=== PATIENT | female | born 1935 | race Caucasian/White ===

== ENCOUNTER → 2017-04-21 | Outpatient (CLI) | payer BC ==
[~2017-04-21] MED LIST: FSMUNK; PRLSRUNK; ZCRUNK PO
[2017-04-21 10:15] LABS: ALT/SGPT 19 U/L (12-78); AST/SGOT 19 U/L (15-37); BLOOD UREA NITROGEN 18 mg/dl (7-18); BUN/CREATININE RATIO 20.2 (10-20); CALCIUM 8.8 mg/dl (8.5-10.1); CARBON DIOXIDE 30 mmol/L (21-32); CHLORIDE 108 mmol/L (98-107); CREATININE 0.88 mg/dl (0.60-1.20); GLUCOSE 86 mg/dl (70-99); POTASSIUM 4.1 mmol/L (3.5-5.1); SODIUM 142 mmol/L (136-145)
[2017-04-21 10:18] LABS: ALB/GLOB RATIO 1.1 (0.9-2); ALKALINE PHOSPHATASE 68 U/L (45-117); CHOLESTEROL 181 mg/dl (0-200); CHOLESTEROL/HDL RATIO 2.5; HDL CHOLESTEROL 73 mg/dl; LDL CHOLESTEROL CALCULATED 80 mg/dl; TRIGLYCERIDES 139 mg/dl (0-150); VERY LOW DENSITY LIPOPROT CALC 28 mg/dl
== END | disposition home or self-care (01) ==
LOC: C.LAB1850 08:58
PROVIDERS: ATTEND Internal Medicine Pulmonary Disease
DX: D86.9 Sarcoidosis, unspecified (principal); E78.5 Hyperlipidemia, unspecified; K21.9 Gastro-esophageal reflux disease without esophagitis

== ENCOUNTER → 2017-08-26 | Outpatient (CLI) | payer BC ==
--- NOTE | 2017-08-26 14:55 | MAMMOGRAPHY REPORT ---
BILATERAL DIGITAL SCREENING MAMMOGRAM WITH CAD: 08/26/2017 CLINICAL HISTORY: Routine screening. Patient has no complaints. TECHNIQUE: Current study was also evaluated with a Computer Aided Detection (CAD) system. Bilateral CC and MLO views were obtained. COMPARISON: Comparison is made to exams dated: 08/25/2016 mammogram, 08/22/2015 mammogram, 07/11/2014 m ammogram, 07/06/2013 mammogram, 07/07/2012 mammogram, and 07/04/2012 mammogram - [facility] ter. BREAST COMPOSITION: The tissue of both breasts is heterogeneously dense, which may obscure small mas ses. FINDINGS: No suspicious masses, calcifications, or areas of architectural distortion are noted in ei ther breast. There has been no significant interval change compared to prior exams. Scattered bilater al benign-appearing calcifications are not significantly changed. Bilateral asymmetries are stable. IMPRESSION: ACR BI-RADS CATEGORY 2: BENIGN There is no mammographic evidence of malignancy. A 1 year screening mammogram is recommended. The pa tient will receive written notification of the results. Approximately 10% of breast cancers are not detected with mammography. A negative mammographic report should not delay biopsy if a clinically suggestive mass is present. Tameka Josue M.D. /:08/26/2017 12:56:19 [place] Tender: Jeniffer MACIAS)([place])([place]), [facility] letter sent: Normal 1/2 BI-RADS Code: ACR BI-RADS Category 2: Benign
== END | disposition home or self-care (01) ==
LOC: C.MAMM 10:02
PROVIDERS: ATTEND Internal Medicine Pulmonary Disease
DX: Z12.31 Encounter for screening mammogram for malignant neoplasm of breast (principal)

== ENCOUNTER → 2017-10-17 | Outpatient (CLI) | payer BC ==
[2017-10-17 10:38] LABS: BASO % 1.1 %; BASO ABS # 0.06 K/uL (0-0.2); COMPLETE YES; EOS % 3.3 %; HEMATOCRIT 41.7 % (37-47); LYMPH % 32.4 %; LYMPH ABS # 1.75 K/uL (1.2-3.4); MEAN CELL VOLUME 87.2 fL (80-100); MEAN CORPUSCULAR HEMOGLOBIN 28.5 pg (25-34); MEAN CORPUSCULAR HGB CONC 32.6 g/dl (32-36); MEAN PLATELET VOLUME 10.8 fL (7.4-10.4); NEUT % 53.2 %; PLATELET COUNT 256 K/uL (130-400); RED BLOOD COUNT 4.78 M/uL (4.2-5.4)
[2017-10-17 12:47] LABS: ALT/SGPT 19 U/L (12-78); AST/SGOT 16 U/L (15-37); BLOOD UREA NITROGEN 18 mg/dl (7-18); BUN/CREATININE RATIO 18.6 (10-20); CARBON DIOXIDE 28 mmol/L (21-32); CHLORIDE 101 mmol/L (98-107); CHOLESTEROL 218 mg/dl (0-200); CHOLESTEROL/HDL RATIO 2.6; CREATININE 0.94 mg/dl (0.60-1.20); GLUCOSE 91 mg/dl (70-99); HDL CHOLESTEROL 84 mg/dl; LDL CHOLESTEROL CALCULATED 107 mg/dl; POTASSIUM 4.2 mmol/L (3.5-5.1); SODIUM 138 mmol/L (136-145); TRIGLYCERIDES 134 mg/dl (0-150); VERY LOW DENSITY LIPOPROT CALC 27 mg/dl
[2017-10-17 12:57] LABS: ALKALINE PHOSPHATASE 70 U/L (45-117); THYROID STIMULATING HORMONE 0.876 uIu/ml (0.300-4.500)
== END | disposition home or self-care (01) ==
LOC: C.LAB1850 09:31
PROVIDERS: ATTEND Internal Medicine Pulmonary Disease
DX: D86.9 Sarcoidosis, unspecified (principal); E78.5 Hyperlipidemia, unspecified; K21.9 Gastro-esophageal reflux disease without esophagitis

== ENCOUNTER → 2017-11-10 | Outpatient (CLI) | payer BC ==
--- NOTE | 2017-11-10 11:43 | DIAGNOSTIC IMAGING REPORT ---
C-SPINE ROUTINE 4 OR 5 VIEWS HISTORY: Pain. Neuropathy. M25.50 [id number] COMPARISON: None. FINDINGS: The cervical spine is visualized from C1 through the superior endplate of T1. There is no fracture. No subluxation. Moderate degenerative disc change primarily from C3 through C6. Prevertebral soft tissues and the atlantodens interval are intact. IMPRESSION: Moderate degenerative disc change from C3 through C6. No acute process. The above report was generated using voice recognition software. It may contain grammatical, syntax or spelling errors. Electronically signed by: Aramis Ham M.D. 11/10/2017 11:41 AM Dictated Date/Time: 11/10/2017 11:40 AM
== END | disposition home or self-care (01) ==
LOC: C.RAD1850 11:26
PROVIDERS: ATTEND Internal Medicine Pulmonary Disease
DX: M25.50 Pain in unspecified joint (principal); M50.90 Cervical disc disorder, unspecified, unspecified cervical region

== ENCOUNTER 2025-06-14 12:00 | Observation (INO) ==
--- NOTE | 2025-06-14 12:37 | Emergency Department Note ---
Impression & Plan Nausea ED Provider Note Provider: Ta Wei MD CHIEF COMPLAINT: Weakness, poor intake, nausea HISTORY OF PRESENT ILLNESS: Patient is a 89-year-old female history of H. pylori gastritis, chronic ongoing nausea and weight loss presenting here today with son. Has been dealing with over a year of ongoing nausea issues since a fall. Has seen GI and has EGDs in the past and recently yesterday restarted treatment for H. pylori. Was seen in the ER several weeks ago for similar complaints as today as well as in the primary care office on the . Son reports he thinks some comfort of this might be stress and anxiety and they have a psychiatry appointment coming up in 8 days. Patient lives by herself. Hardly eating any food at all and limited water intake. Son is concerned about her weight loss and ongoing nausea issues. She not functioning well at home and is generally weak. No significant abdominal pain however. No falls. Does feel somewhat unsteady with walking however. PAST MEDICAL HISTORY: As noted above MEDICATIONS: Reviewed home medications. Started antibiotics yesterday SOCIAL HISTORY: Lives at home by herself, PHYSICAL EXAM: GENERAL: alert and oriented in no acute distress on stretcher Head: normocephalic and atraumatic EYES: No injection, discharge or icterus. NECK: Trachea midline. ENT: Mucous membranes pink and moist. LUNGS: Airway patent. No retractions. Breath sounds clear HEART: Regular rate and rhythm. No chest wall tenderness ABDOMEN: Soft and non-tender, without guarding or rebound. No masses SKIN: Acyanotic, warm, dry, without rashes EXTREMITIES: Without swelling, tenderness or deformity NEUROLOGICAL: No focal deficits. No aphasia. No facial droop or slurred speech.Ambulatory. EK bpm normal sinus rhythm with sinus arrhythmia. No acute ST segment elevation or depression with a QTc of 440. CONTINUOUS CARDIAC MONITORING: was ordered and showed a heart rate of 80s-100s bpm in normal sinus rhythm sinus tachycardia Patient's laboratory studies and imaging reviewed. Differential includes Gastroenteritis, food borne illness, infections, appendicitis, diverticulitis, inflammatory bowel disease, obstruction, GI bleed, biliary pathology, volvulus, as well as other pathologies. IMPRESSION/MEDICAL DECISION MAKING: Patient well-appearing in no distress. Evidently ongoing issues with nausea. Has extensive GI workup. Just restarted on H. pylori medication yesterday. Send given Imodium and no further diarrhea since yesterday. No reported symptoms of GI bleeding. No significant recent travel reported. No abdominal pain. Blood work obtained here without significant anemia, leukocytosis/evidence of sepsis, electrolyte abnormality, renal dysfunction, or evidence of hepatitis or pancreatitis. Son thinks it may be some component of anxiety causing some of her nausea symptoms as well. Patient does live by herself and is been weak and having some increased difficulty ambulating. No falls reported or syncope. Son reports that they are strongly considering having the patient move in with family and are working to get in with outpatient telepsychiatry this coming week. Benign abdomen and doubt acute intra-abdominal pathology, obstruction, perforation, or mass. Did review prior notes including GI scope from January of this year. Given some Haldol's as been effective in the past to help with the nausea with some improvement. Given a small gentle IV fluid bolus. Does not appear an extremis. Discussed with patient and son at bedside. They wish to have the patient stay least overnight and possibly with psychiatry consultation and ensure that her nausea is continued to have improvement and work to establish better outpatient living arrangement for the patient. As such reach out to the hospitalist team for further observation. DIAGNOSIS: Intractable nausea DISPOSITION: Hospitalist will evaluate Patient was agreeable with this plan. Past Med/Surg History Problem List (Updated 06/14/25 @ 16:15 by Ta Wei M.D.) Nausea (Acute) Chronic Helicobacter pylori gastritis Anxiety (Acute) Abdominal pain (Acute) Nausea (Acute) Elevated CEA H. pylori infection Nausea Unintentional weight loss Insomnia Fracture of thumb Current use of proton pump inhibitor Tendinitis of right rotator cuff Impacted cerumen, right ear Memory loss Impacted cerumen, left ear Sensorineural hearing loss (SNHL) of right ear with restricted hearing of left ear Hearing loss Right knee pain Lumbar radiculopathy Lumbar spondylosis Dyslipidemia (Chronic) GERD without esophagitis (Chronic) Sarcoidosis (Chronic) Medical History History of COVID-19 Memory problem History of fall (02/2024) Gastrointestinal complaints GERD (gastroesophageal reflux disease) Abnormal blood cell count Hyperlipidemia History of diverticulosis Sarcoidosis Surgical History History of bronchoscopy History of colonoscopy (~2008) History of tubal ligation Family History Unknown ASCVD (arteriosclerotic cardiovascular disease) Denies family history of Ovarian cancer Prostate cancer Clotting disorder Myocardial infarction Breast cancer Colorectal cancer Social History Smoking Status: Never smoker Tobacco Type: Cigarettes Age Started Using Tobacco: 24; Age Quit Using Tobacco: 62; packs per day: 0.1; Second Hand Exposure: No; Do You Dip or Chew Tobacco: No; Hx Alcohol Use: Yes Alcohol type: wine Alcohol Intake Frequency: 2-4 x/Month Hx Substance Use: No Preferred Language: Chinese Communication Ability: Effective Visual Impairment: No Limitations Hearing Ability: Use of Hearing Aid Varying Exceptionalities Teacher Required: No Beliefs That Will Affect Care: None marital status: / Current Living Situation: Alone current occupational status: retired Feels Safe at Home: Yes Childhood Exposure to Second-Hand Smoke: No Diet: regular caffeine: Yes Dental Care, Regularly: No Physical Activity Frequency: 3-4 Times per Week Physical Activity Frequency Comment: timmy and swimming at [employer] Seatbelt Use: always Assistive Devices: Glasses and Hearing Aid - Bilateral Allergies Allergies Allergy/AdvReac Type Severity Reaction Status Date / Time levofloxacin [From Levaquin] Allergy Unknown pt can't Verified 06/07/25 11:34 remember reaction Home Meds Home Medications Medication Instructions Recorded Confirmed aspirin 81 mg tablet,delayed 81 mg PO DAILY 01/22/25 06/14/25 release (Adult Low Dose Aspirin) Previous Rx's Medication Instructions Recorded escitalopram oxalate 5 mg tablet 5 mg PO DAILY #30 tabs 05/28/25 (Lexapro) lorazepam 0.5 mg tablet 0.25 mg (1/2 x 0.5 mg) PO DAILY 05/28/25 PRN anxiety #14 tabs bismuth subsalicylate 525 mg/15 mL 525 mg (15 mL) PO QID 14 days #840 06/07/25 oral suspension mL metronidazole 500 mg tablet 500 mg PO TID #42 tabs 06/07/25 pantoprazole 40 mg tablet,delayed 40 mg PO BID #60 tabs 06/07/25 release tetracycline 500 mg tablet 500 mg PO Q6H #56 tabs 06/07/25 Results & Data (ED) Vital Signs Vital Signs - 24 hr 06/14/25 12:08 06/14/25 13:07 06/14/25 14:26 Temperature 36.6 C Temperature Source Temporal Artery Scan Pulse Rate 87 90 Pulse Rate [Apical] 92 H Respiratory Rate 18 16 Respiratory Effort / Characteristics Non-Labored Spontaneous Non-Labored Spontaneous Respiratory Depth Normal Respiratory Pattern Regular Blood Pressure 150/82 H Blood Pressure [Right Arm] 174/93 H Blood Pressure Mean 104 Blood Pressure Mean [Right Arm] 120 Blood Pressure Position Sitting Blood Pressure Position [Right Arm] Lying Pulse Oximetry 97 98 Oxygen Delivery Method Room Air Room Air Sepsis Recent Fever Within 48 Hours No Sepsis New/Unexplained Change in Mental Status N/A Sepsis Action Taken by Nursing No Action Required 06/14/25 14:54 06/14/25 14:54 06/14/25 14:54 Temperature Temperature Source Pulse Rate 87 Pulse Rate [Apical] 89 Respiratory Rate 16 16 Respiratory Effort / Characteristics Non-Labored Spontaneous Respiratory Depth Respiratory Pattern Blood Pressure Blood Pressure [Right Arm] 174/93 H Blood Pressure Mean Blood Pressure Mean [Right Arm] 120 Blood Pressure Position Blood Pressure Position [Right Arm] Pulse Oximetry 98 98 98 Oxygen Delivery Method Room Air Room Air Room Air Sepsis Recent Fever Within 48 Hours Sepsis New/Unexplained Change in Mental Status Sepsis Action Taken by Nursing 06/14/25 16:00 Temperature Temperature Source Pulse Rate Pulse Rate [Apical] 86 Respiratory Rate 16 Respiratory Effort / Characteristics Non-Labored Spontaneous Respiratory Depth Respiratory Pattern Blood Pressure Blood Pressure [Right Arm] 183/89 H Blood Pressure Mean Blood Pressure Mean [Right Arm] 120 Blood Pressure Position Blood Pressure Position [Right Arm] Pulse Oximetry 98 Oxygen Delivery Method Room Air Sepsis Recent Fever Within 48 Hours Sepsis New/Unexplained Change in Mental Status Sepsis Action Taken by Nursing Laboratory Data 06/14/25 12:29 06/14/25 12:29 Lab Results 06/14/25 06/14/25 06/14/25 Range/Units 12:29 13:04 Unknown WBC 7.23 (4.8-10.8) K/ul RBC 4.23 (4.20-5.40) M/uL Hgb 12.2 (12.0-16.0) g/dl Hct 36.3 L (37.0-47.0) % MCV 85.8 (80.0-100.0) fL MCH 28.8 (25.0-34.0) pg MCHC 33.6 (32.0-36.0) g/dL RDW Std Deviation 39.9 (36.4-46.3) fL RDW Coeff of Jen 12.9 (11.5-14.5) % Plt Count 244 (130-400) K/uL MPV 11.3 (9.4-12.4) fL Immature Gran % (Auto) 0.1 % Neut % (Auto) 77.3 % Lymph % (Auto) 13.7 % [place] % (Auto) 7.7 % Eos % (Auto) 0.4 % Baso % (Auto) 0.8 % Neut # (Auto) 5.58 (1.40-6.50) K/uL Lymph # (Auto) 0.99 L (1.20-3.40) K/uL [place] # (Auto) 0.56 (0.11-0.59) K/uL Eos # (Auto) 0.03 (0.00-0.50) K/uL Baso # (Auto) 0.06 (0.00-0.20) K/uL Immature Gran # (Auto) 0.01 (0.01-0.20) K/uL Sodium 138 (136-145) mmol/L Potassium 3.7 (3.5-5.1) mmol/L Chloride 103 (98-107) mmol/L Carbon Dioxide 28 (21-32) mmol/L Anion Gap 7 (3-11) BUN 13 (6-23) mg/dl Creatinine 0.98 (0.6-1.2) mg/dl Est Cr Clr Drug Dosing Not Reportable eGFR 55.86 BUN/Creatinine Ratio 13.3 (10-20) Glucose 135 H (70-99(Fasting)) mg/dl Calcium 9.4 (8.6-10.3) mg/dl Magnesium 1.8 (1.7-2.4) mg/dl Total Bilirubin 0.9 (0.2-1.0) mg/dl AST 20 (13-39) U/L ALT 12 (7-52) U/L Alkaline Phosphatase 54 (34-104) U/L Troponin I High Sens 3.4 (0-14) pg/ml Total Protein 6.7 (6.0-8.3) gm/dl Albumin 3.9 (3.4-5.0) gm/dl Globulin 2.8 (2.5-4.0) gm/dl Albumin/Globulin Ratio 1.4 (0.9-2) Lipase 21 (11-82) U/L TSH 1.013 (0.300-4.500) uIu/ml Urine Color Yellow Urine Appearance Clear (Clear) Urine pH 7.0 (4.5-7.5) Ur Specific [place] 1.005 (1.000-1.030) Urine Protein Negative (Negative) Urine Glucose (UA) Negative (Negative) Urine Ketones Negative (Negative) Urine Blood Negative (Negative) Urine Nitrite Negative (Negative) Urine Bilirubin Negative (Negative) Urine Urobilinogen Negative (Negative) Ur Leukocyte Esterase 2+ H (Negative) Urine WBC (Auto) 6-10 H (0-5) /hpf Urine RBC (Auto) 0-2 (0-2) /hpf U Hyaline Cast (Auto) 0-2 (0-2) /lpf U Epithel Cells (Auto) 0-2 (0-2) /hpf Urine Bacteria (Auto) None Seen (None Seen) Urine Comment SARS-CoV-2, RNA, NAAT NEGATIVE (NEGATIVE) Administered Medications Discontinued Medications Famotidine (Famotidine 40 Mg/5 Ml 50ml Btl) 40 mg PO ONE ONE Stop: 06/14/25 15:31 Last Admin: 06/14/25 16:08 Dose: 40 mg Documented By: MANJULA Haloperidol Lactate (Haloperidol Lactate 5 Mg/Ml 1 Ml Vial) 2.5 mg IV NOW STA Stop: 06/14/25 12:37 Last Admin: 06/14/25 12:58 Dose: 2.5 mg Documented By: MANJULA Lactated Ringer's (Lr) 500 mls @ 999 mls/hr IV .Q31M ONE Stop: 06/14/25 13:06 Last Infusion: 06/14/25 14:53 Dose: Infused Documented By: Admin: 06/14/25 12:59 Dose: 999 mls/hr Documented By: MANJULA Discharge Plan Visit Data Chief Complaint: Weakness Stated Complaint: NAUSEA, WEAK, NOT EATING ED Provider: Ta Wei Discharge Problem: Nausea Patient Disposition: Being Evaluated by Hospitalist Condition: Fair Forms Stand Alone Forms: My [facility] Medical Prescriptions Prescriptions: No Action escitalopram oxalate [Lexapro] 5 mg tablet 5 mg PO DAILY Qty: 30 2RF lorazepam 0.5 mg tablet 0.25 mg PO DAILY PRN (Reason: anxiety) Qty: 14 0RF aspirin [Adult Low Dose Aspirin] 81 mg tablet,delayed release (DR/EC) 81 mg PO DAILY pantoprazole 40 mg tablet,delayed release (DR/EC) 40 mg PO BID Qty: 60 1RF bismuth subsalicylate 525 mg/15 mL suspension 525 mg PO QID 14 Days Qty: 840 0RF tetracycline 500 mg tablet 500 mg PO Q6H Qty: 56 0RF metronidazole 500 mg tablet 500 mg PO TID Qty: 42 0RF Referrals Referrals: Marquis Cooney MD [Primary Care Provider] -
[2025-06-14] MEDS: HALOPERIDOL LACTATE 5 MG/ML 1 ML VIAL IV STA (12:58)
[2025-06-14] MEDS: LACTATED RINGER'S 500 ML IV ONE (12:59)
[2025-06-14 13:02] LABS: Hematocrit (blood only) 36.3 % (37.0-47.0); Hemoglobin 12.2 g/dl (12.0-16.0); Immature Granulocytes # (auto) 0.01 K/uL (0.01-0.20); Immature Granulocytes % (auto) 0.1 %; Mean Corpuscular Hemoglobin 28.8 pg (25.0-34.0); Mean Corpuscular Volume 85.8 fL (80.0-100.0); Platelet Count 244 K/uL (130-400); RDW Standard Deviation 39.9 fL (36.4-46.3); Red Blood Count 4.23 M/uL (4.20-5.40); White Blood Count 7.23 K/ul (4.8-10.8)
[2025-06-14 13:17] LABS: Alanine Aminotransferase 12 U/L (7-52); Albumin Globulin Ratio 1.4 (0.9-2); Alkaline Phosphatase 54 U/L (34-104); Anion Gap 7 (3-11); Bilirubin,Total 0.9 mg/dl (0.2-1.0); Blood Urea Nitrogen 13 mg/dl (6-23); Calcium 9.4 mg/dl (8.6-10.3); Carbon Dioxide 28 mmol/L (21-32); Chloride 103 mmol/L (98-107); Globulin 2.8 gm/dl (2.5-4.0); Glucose 135 mg/dl (70-99(Fasting)); Lipase 21 U/L (11-82); Magnesium 1.8 mg/dl (1.7-2.4); Potassium 3.7 mmol/L (3.5-5.1); Sodium 138 mmol/L (136-145); Total Protein 6.7 gm/dl (6.0-8.3)
[2025-06-14 13:30] LABS: Thyroid Stimulating Hormone 1.013 uIu/ml (0.300-4.500)
[2025-06-14 14:22] LABS: Appearance Urine Clear (Clear); Bacteria Urine Automated None Seen (None Seen); Cast Urine Automated 0-2 /lpf (0-2); Epithelial Cell Urine Auto 0-2 /hpf (0-2); Glucose Urine UA Negative (Negative); RBC Urine Automated 0-2 /hpf (0-2)
[2025-06-14] MEDS ORDERED: ACETAMINOPHEN 325 MG TAB PO PRN (14:26)
[2025-06-14] MEDS ORDERED: LORazepam 0.5 MG TAB PO PRN (14:28)
--- NOTE | 2025-06-14 15:09 | Electrocardiogram Report ---
Test Reason : Blood Pressure : */* mmHG Vent. Rate : 86 BPM Atrial Rate : 86 BPM P-R Int : 120 ms QRS Dur : 74 ms QT Int : 368 ms P-R-T Axes : -21 -17 -18 degrees QTcB Int : 440 ms Normal sinus rhythm with sinus arrhythmia Low voltage QRS Inferior infarct , age undetermined Abnormal ECG When compared with ECG of 06-Jun-2025 09:18, Premature ventricular complexes are no longer Present Inferior infarct is now Present Confirmed by Marquis Mosher ([id number]) on 06/14/2025 3:09:26 PM Referred By: REFERRED SELF Confirmed By: Marquis Mosher
[2025-06-14] MEDS: FAMOTIDINE 40 MG/5 ML 50ML BTL PO ONE (16:08)
--- NOTE | 2025-06-14 16:55 | History & Physical Report ---
Date of Service June 14, 2025 Assessment & Plan (1) Anxiety: Plan: As above in the HPI. (2) Sterile pyuria: Plan: As above in the HPI. (3) Generalized weakness: Plan: As above in the HPI. History of Present Illness Chief Complaint: "I haven't eaten much for the past one year because of nausea. I've lost 30 pounds in the past one year because of the nausea, I don't feel like eating. I already got EGD, colonoscopy and CAT scans, and I don't hve colon cancer. I also don't vomit or have diarrhea, except yesterday (06/13/2025) when I had diarrhea twice, no blood, just watery diarrhea, and that was only because I started taking flagyl 500mg and tetracycline 100mg and protonix 40mg starting last night (06/13/2025, 5:00pm), then again in the middle of the night (06/14/2025, 12:00am), and again this morning (06/14/2025, 6:00am), as recommended by my family doctor, Dr. Marquis Cooney, thinking that I was having H. pylori infection, but these medicines did me no good. I took these same 3 medicines last (06/06/2025) as recommended by my GI doctor, Dr. Jluio Scott, and his offset press assistant, Ms. Zakiya Winters PA-C, who wrote out the prescriptions for these 3 medicines, thinking that I had H. pylori infection last week, and so, I took these three medicines last week and they seemed to help me last week, but this week, the nausea came right back, and so now, I do not think I have H. pylori infection, and I am not taking these 3 medicines. I think that I have maybe something else, I don't really know. My son, Miah Adams ( ), says that I am very anxious, and I am thinking that maybe he is right. Maybe I could see a psychiatrist." Primary Care Provider: Marquis Cooney MD 89 years old female with PMH of DNR/DNI @ home alone, underweight with BMI 17.87 (height 165.1 cm; weight 48.5 kg), former tobacco abuse with no subsequent diagnosis of COPD, not on home O2 or home steroids, H. pylori infection (January 2025), treated successfully with a combination of metronidazole, tetracycline, and protonix, as per patient's report, followed by H. pylori stool antigen test negative (04/10/2025, 9:00am), bilateral sensineural hearing loss with no binaural hearing aids in situ @ home, and group B beta hemolytic Streptococcus (as noted on 03/23/2023, 2:31pm urine culture), who reports: "I haven't eaten much for the past one year because of nausea. I've lost 30 pounds in the past one year because of the nausea, I don't feel like eating. I already got EGD, colonoscopy and CAT scans, and I don't hve colon cancer. I also don't vomit or have diarrhea, except yesterday (06/13/2025) when I had diarrhea twice, no blood, just watery diarrhea, and that was only because I started taking flagyl 500mg and tetracycline 100mg and protonix 40mg starting last night (06/13/2025, 5:00pm), then again in the middle of the night (06/14/2025, 12:00am), and again this morning (06/14/2025, 6:00am), as recommended by my family doctor, Dr. Marquis Cooney, thinking that I was having H. pylori infection, but these medicines did me no good. I took these same 3 medicines last (06/06/2025) as recommended by my GI doctor, Dr. Julio Scott, and his offset press assistant, Ms. Zakiya Winters PA-C, who wrote out the prescriptions for these 3 medicines, thinking that I had H. pylori infection last week, and so, I took these three medicines last week and they seemed to help me last week, but this week, the nausea came right back, and so now, I do not think I have H. pylori infection, and I am not taking these 3 medicines. I think that I have maybe something else, I don't really know. My son, Miah Adams ( ), says that I am very anxious, and I am thinking that maybe he is right. I lost my 32 years ago, then in March, I fell down in my living room vacuuming a rug and I tripped and I fell into a corner wall and broke my right clavicle (as affirmed on 04/19/2024 MRI right shoulder which demonstrated "Subacute appearing displaced, and foreshortened complete fracture involving the mid diaphyseal clavicle with proximal fracture fragment displaced superiorly 11 mm"), and I was on pain meds for a year. I got depressed and started missing my again, and then the nausea started up and I lost 30 pounds in the last year. My son, Miah Adams ( ) is convinced I am anxious. Maybe I could see a psychiatrist." Patient denies antecedent/coincident early satiety, dysphagia, odynophagia, night sweats, fevers, chills, cough, wheeze, sore throat, hemoptysis, chest pains, palpitations, pleurisy, vomiting, abdominal pain, pelvic pain, hematemesis, hematochezia, melena, hematuria, dysuria, frequency, urgency, headaches, dizziness, lightheadedness, visual changes, hearing changes, weakness, falls, syncope, trauma, travel history, sick contacts, or food/drug ingestions novel or new. All other review of systems are reported as negative by the patient on observation date 06/14/2025. In [facility] ER bed #C6, patient was afebrile @ 36.6 degrees Celsius, HR 87, RR 18, O2 sat 97% on room air, and BP 150/82 (06/14/2025, 12: 08pm). Exam was noted for a soft, non-tender, non-distended abdomen without guarding, Pham's sign, or organomegaly. Bowel sounds were auscultated in all 4 quadrants. Labs in [facility] ER bed #C6 included: WBC 7.23, N77 L14 M8 B1, Hb 12.2, MCV 85.8, MCHC 33.6, platelet 244 (06/14/2025, 12:29pm). INR (06/14/2025, 12:29pm). Na 138, K 3.7, BUN 13, creatinine 0.98, glucose 135, Ca 9.4, Mg 1.8, AST 20, ALT 12, ALK PHOS 54, TBili 0.9 (06/14/2025, 12:29pm). Lipase 21 U/L (06/14/2025, 12:29pm). TSH 1.01 uIU/mL (06/14/2025, 12:29pm). U/A: clear yellow, LE 2+, nitrite-, WBC 6-10, RBC 0-2, epithelial cells 0-2, bacteria 0 (06/14/2025). urine culture (06/14/2025): Lactic acid #1 (06/14/2025, 6:24pm). Lactic acid #2 (06/14/2025, 10:24pm). Lactic acid #3 (06/15/2025, 6:00am). Procalcitonin #1 (06/14/2025, 6:24pm). Procalcitonin #2 (06/15/2025, 6:00am). Additional testing in [facility] ER bed #C6 included: EKG (06/14/2025, 12:17pm): NSR @ 86, NV 120, QTC 440, no acute ST depressions/elevations (by my review). Patient was subsequently placed in OBSERVATION on the hospitalist service @ [facility] on 06/14/2025 with the following diagnoses: 1. Anxiety disorder, undiagnosed and untreated. 2. Sterile pyuria (as defined by WBC >/= 10, bacteria 0), R/O acute UTI. 3. Generalized deconditioning. To address #1, patient awaits formal Psychiatry Service evaluation with Dr. Felisha Garza. To address #2, patient was started on ceftriaxone 2g IV daily (day #1/3 on 06/14/2025, 7:00pm) in [facility] Med-Surg bed #N376-1. I will check vitals, genito-urinary exam, WBC w/diff, lactic acid #2 (06/14/2025, 10:24pm), lactic acid #3 (06/15/2025, 6:00am), procalcitonin #1 (06/14/2025, 6:24pm), procalcitonin #2 (06/15/2025, 6:00am), and urine culture (06/14/2025, 6:23pm) in the 06/15/2025 am. To address #3, patient awaits PT/OT/Case Management Service evaluation to determine if patient is safe for D/C back to her home alone, where she currently ambulates without assistance from cane, walker, or wheelchair, and who has only fallen down once (e.g., 04/19/2024, on which date, patient reports: "I fell down in my living room vacuuming a rug and I tripped and I fell into a corner wall and broke my right clavicle (as affirmed on 04/19/2024 MRI right shoulder which demonstrated "Subacute appearing displaced, and foreshortened complete fracture involving the mid diaphyseal clavicle with proximal fracture fragment displaced superiorly 11 mm"), and I was on pain meds for a year.") or if patient should move into her son's home (Mr. Miah Adams, ), as recommended by her son (Mr. Miah Adams, ). Patient reports that she wishes to remain living independently in her own home. Allergies Allergy/AdvReac Type Severity Reaction Status Date / Time levofloxacin [From Levaquin] Allergy Unknown pt can't Verified 06/07/25 11:34 remember reaction Home Medications Medication Instructions Recorded Confirmed Type aspirin 81 mg tablet,delayed 81 mg PO DAILY 01/22/25 06/14/25 History release (Adult Low Dose Aspirin) escitalopram oxalate 5 mg tablet 5 mg PO DAILY #30 tabs 05/28/25 06/14/25 Rx (Lexapro) lorazepam 0.5 mg tablet 0.25 mg (1/2 x 0.5 mg) PO DAILY 05/28/25 06/14/25 Rx PRN anxiety #14 tabs bismuth subsalicylate 525 mg/15 mL 525 mg (15 mL) PO QID 14 days #840 06/07/25 06/14/25 Rx oral suspension mL metronidazole 500 mg tablet 500 mg PO TID #42 tabs 06/07/25 06/14/25 Rx pantoprazole 40 mg tablet,delayed 40 mg PO BID #60 tabs 06/07/25 06/14/25 Rx release tetracycline 500 mg tablet 500 mg PO Q6H #56 tabs 06/07/25 06/14/25 Rx Past Med/Surg History Problem List (Updated 06/14/25 @ 18:51 by Sean Sotelo MD, PhD) Generalized weakness Sterile pyuria Nausea (Acute) Chronic Helicobacter pylori gastritis Anxiety (Acute) Abdominal pain (Acute) Nausea (Acute) Elevated CEA H. pylori infection Nausea Unintentional weight loss Insomnia Fracture of thumb Current use of proton pump inhibitor Tendinitis of right rotator cuff Impacted cerumen, right ear Memory loss Impacted cerumen, left ear Sensorineural hearing loss (SNHL) of right ear with restricted hearing of left ear Hearing loss Right knee pain Lumbar radiculopathy Lumbar spondylosis Dyslipidemia (Chronic) GERD without esophagitis (Chronic) Sarcoidosis (Chronic) Medical History History of COVID-19 approx 04/2024 Memory problem discussed with Dr. Cooney. No neurology. History of fall (02/2024) pt reports every since fall her body hasn't been right. only known injury : something with rotator cuff, right. No hx sx intervention. Gastrointestinal complaints nasuea, loss of appetitie, wt loss within past yr. Reason for upcoming procedures. GERD (gastroesophageal reflux disease) not that pt knows of Abnormal blood cell count pt reports told "blood count was low" - unsure details. bloodwork was within last month. Dr. Cooney. Hyperlipidemia History of diverticulosis pt is not sure Sarcoidosis pt not sure Surgical History History of bronchoscopy History of colonoscopy (~2008) History of tubal ligation Family History Unknown ASCVD (arteriosclerotic cardiovascular disease) Father , at 82 years of age from natural causes. No problems noted. Mother , at 92 years of age from natural causes. No problems noted. Denies family history of Ovarian cancer Prostate cancer Clotting disorder Myocardial infarction Breast cancer Colorectal cancer Social History Smoking Status: Never smoker Tobacco Type: Cigarettes Age Started Using Tobacco: 24; Age Quit Using Tobacco: 62; packs per day: 0.1; Second Hand Exposure: No; Do You Dip or Chew Tobacco: No; Hx Alcohol Use: Yes Alcohol type: wine Alcohol Intake Frequency: 2-4 x/Month Hx Substance Use: No Preferred Language: [place] Islander Communication Ability: Effective Visual Impairment: No Limitations Hearing Ability: Use of Hearing Aid Electrical Engineering Draftsperson Required: No Beliefs That Will Affect Care: None marital status: / Current Living Situation: Alone current occupational status: retired Feels Safe at Home: Yes Childhood Exposure to Second-Hand Smoke: No Diet: regular caffeine: Yes Dental Care, Regularly: No Physical Activity Frequency: 3-4 Times per Week Physical Activity Frequency Comment: timmy and swimming at [employer] Use: always Assistive Devices: Glasses and Hearing Aid - Bilateral Review of Systems Constitutional: As above in the HPI. Physical Exam Constitutional: General: Comfortable, cooperative, coherent. Wide awake and alert. Not confused, lethargic, or obtunded. Patient speaks in complete, fluent, and articulate sentences without pause, interruption, cough, or wheeze. HEENT: Normocephalic, atraumatic. Pupils equally round and reactive to light. No nystagmus, gaze paresis, anisocoria, miosis, mydriasis, hyphema, scleral injection, conjunctivitis, or pterygium. No otorrhea. No pharyngeal erythema, edema, or discharge. Neck: Supple, no stridor, bruit, goiter, or hepato-jugular reflux. Jugular venous pressure is estimated to be 3 cm above the sternal angle of Surinder, which in turn, is 5 cm above the level of the right atrium; with jugular venous pressure estimated to be 8 cm, then, there is no jugular venous distention on 06/14/2025. Lymphatics: No cervical (anterior/posterior), supraclavicular, infraclavicular, axillary, epitrochlear, or inguinal adenopathy. Chest: Symmetric rise and fall with respirations. Non-tender to palpation. Lungs: Clear to auscultation and percussion. No audible expiratory wheeze, egophony, pectoriloquy, increase in tactile fremitus, or flatness/dullness to percussion at the bases. Heart: RRR. S1 and S2 noted. No S3 or S4 summation gallop. No tripartite friction rub. Grade II/ early systolic murmur @ LLSB without radiation to the carotids, axilla, or back, and which remains invariant in regards to the respiratory cycle. Abdomen: Soft, non-tender, non-distended. No rebound, guarding, Pham's sign, or organomegaly. Bowel sounds auscultated in all 4 quadrants. Extremities: No clubbing, cyanosis, or edema in upper extremities or lower extremities bilaterally. 2+ pedal pulses bilaterally. Skin: No decubitus ulcer or enanthem. Genito-urinary: No urethral discharge. No abreu catheter. Neurology: Alert and oriented in regards to person, place, time, and situation. 5/5 motor strength in all 4 extremities, both proximally and distally. No pronator drift. No dysarthria. No facial droop. Psychiatry: No homicidal ideation. No suicidal ideation. No flat affect; smiles appropriately. Results & Data Results & Data Vital Signs (Past 12 Hours) Vital Signs Temp Pulse Pulse Resp BP BP Pulse Ox 06/14/25 16:29 36.8 C 92 H 16 99 06/14/25 16:00 86 16 183/89 H 98 06/14/25 14:54 87 16 98 06/14/25 14:54 89 16 174/93 H 98 06/14/25 14:54 98 06/14/25 14:26 92 H 16 174/93 H 98 06/14/25 13:07 90 06/14/25 12:08 36.6 C 87 18 150/82 H 97 O2 Del Method 06/14/25 16:29 Room Air 06/14/25 16:00 Room Air 06/14/25 14:54 Room Air 06/14/25 14:54 Room Air 06/14/25 14:54 Room Air 06/14/25 14:26 Room Air 06/14/25 13:07 06/14/25 12:08 Room Air Laboratory Results As above in the HPI. Diagnostic Findings As above in the HPI. Medications Administered As above in the HPI. Code Status & VTE Plan VTE Prophylaxis Plan VTE Prophylaxis will be ordered: Yes PG Care Time/CCT Total # of Minutes Spent Total Time Spent with Patient: Total time spent is greater than 50% in coordination of care (as documented) at patient's floor/unit and/or counseling patient: Coding Level of Care Code 52964 INT INP/OBS CARE 2/55MIN Diagnoses Anxiety F41.9 Sterile pyuria R82.81 Generalized weakness R53.1
[2025-06-14] MEDS: ONDANSETRON INJ 2 MG/ML 2 ML VIAL IV PRN (17:21)
[2025-06-14] MEDS: MELATONIN 3 MG TAB PO PRN (20:39)
[2025-06-14] MEDS: cefTRIAXone SODIUM 2,000 MG/50 ML BAG IV SCH (20:40)
[2025-06-15 06:21] LABS: Hematocrit (blood only) 33.3 % (37.0-47.0); Hemoglobin 11.5 g/dl (12.0-16.0); Immature Granulocytes # (auto) 0.01 K/uL (0.01-0.20); Immature Granulocytes % (auto) 0.2 %; Mean Corpuscular Hemoglobin 29.0 pg (25.0-34.0); Mean Corpuscular Volume 83.9 fL (80.0-100.0); Platelet Count 221 K/uL (130-400); RDW Standard Deviation 38.5 fL (36.4-46.3); Red Blood Count 3.97 M/uL (4.20-5.40); White Blood Count 5.01 K/ul (4.8-10.8)
[2025-06-15 06:50] LABS: Anion Gap 6.0 (3-11); Blood Urea Nitrogen 11.0 mg/dl (6-23); Calcium 9.2 mg/dl (8.6-10.3); Carbon Dioxide 29.0 mmol/L (21-32); Chloride 105.0 mmol/L (98-107); Creatinine Clr Calc Pharmacy 29.8 ml/min; Glucose 105.0 mg/dl (70-99(Fasting)); Potassium 4.1 mmol/L (3.5-5.1); Sodium 140.0 mmol/L (136-145)
[2025-06-15] MEDS: FAMOTIDINE 40 MG TABLET PO SCH (08:49)
[2025-06-15] MEDS: ASPIRIN 81 MG ECTAB PO SCH (08:49)
[2025-06-15] MEDS ORDERED: ESCITALOPRAM OXALATE 10 MG TAB PO SCH (09:00)
--- NOTE | 2025-06-15 14:53 | Psychiatric Consultation ---
Date of Consultation June 15, 2025 Impression / Recommendations Impression Diagnostically consistent with generalized anxiety disorder and adjustment disorder with depressed mood in context of ongoing nausea and early satiety. Some insomnia likely due to disrupted sleep/wake cycle as she naps during the mornings due to nausea. Highly unlikely that anxiety and depression are solely responsible for her ongoing GI symptoms, especially given previous endoscopy showing significant inflammation. Rather suspect anxiety is worsening due to advancing cognitive impairment and depression from limitations and loss of function secondary to nausea/GI symptoms. Encouragingly despite her symptoms she remains hopeful (would love to travel with her family if her nausea improved) and continues to try to eat when she feels able. Previous trial of mirtazapine per review of records with limited benefit. Brief trial of escitalopram but difficult to tolerate due to ongoing co-occurring GI symptoms. Therefore reasonable to consider trial of olanzapine for off-label use for nausea, appetite stimulation/weight gain, anxiety and sleep promotion. Reviewed that all antipsychotic medications carry black box warning for increased risk of all-cause mortality in setting of dementia/cognitive impairment but at this point risk/benefit profile favors trial if it provided improved quality of life and was effectie at treating GI symptoms as other options including mirtazapine and Zofran have been ineffective to date. Overall, I spent a total of 80 minutes with this case including review of chart records, review of labwork, review of EKG QTc, direct evaluation of the patient at bedside (50 minutes), counseling the patient, discussion of the patient with the hospitalist provider, discussion with the psychiatric liason during clinical rounds, review of collateral historian information from the family and documentation in the electronic health record. (1) Nausea: (2) JOSE (generalized anxiety disorder): (3) Adjustment disorder with depressed mood: (4) Generalized weakness: (5) Unintentional weight loss: (6) Insomnia: (7) Memory loss: Plan -ativan 0.25mg BID prn for anxiety but attempt to limit given risks of worsening cognitive impairment/falls -can continue prior to admission melatonin 10mg HS po -consider trial of olanzapine 1.25mg po HS and titrate to 2.5mg po HS if tolerated to help with sleep/appetite/anxiety * if not tolerated or ineffective (i.e. excess sedation, orthostasis or no improvement of appetite or sleep) then would start mirtazapine 7.5mg HS and increase to 15mg HS if tolerated (she was on this before with limited benefit thus keeping it a second line choice) * Other option would be trial of dronabinol for appetite -has upcoming appointment for outpatient psychiatry Psych History Identifying Data Roseann is an 89 yo woman with a history of H. pylori gastritis, chronic ongoing nausea, weight loss, anxiety, sarcoidosis, hearing loss, cognitive impairment, lumbar spondylosis admitted medically for weight loss and nausea. Psychiatry consulted for anxiety. Chief Complaint "I am a worrywart". History of Present Illness Roseann presents with persistent nausea weight loss and decreased appetite since November 2024. She reports onset of severe stomach upset on November 28 which prevented her from going on a planned beach trip with friends. The nausea is typically worse in the mornings and improves slightly towards the evening usually around 4 PM. She often sleeps in the morning and middle of the day due to the nausea. She has experienced significant weight loss and a dramatic reduction in her food intake now eating minimal amount such as a can of soup or many yogurt per day. She struggles to eat 3 meals a day as she often feels full quickly. Today reports she ate a banana for breakfast and fish for lunch and now feels very full and suspects she will not be able to eat dinner. Her daughter notes that at home she used to have a cappuccino for breakfast, sandwich for lunch and then a larger meal at dinner. Her symptoms have significantly impacted her daily functioning and quality of life. She and her daughter report that after she stopped cooking for herself she did struggle to eat as consistently but for a period of time was eating frozen meals and enjoying these. Recently she has not even felt up to eating her frozen meals. As she has lost more weight she has become more weak and tired and no longer participates in previously enjoyed activities like swimming at the [employer] and going to [place] and has struggled to go out to her weekly Tuesday night dinners with her friend. She estimates the last time they went to dinner was about 3 weeks ago. Her anxiety has been worsening particular over the last 6 months describing herself as a "worry wart". Her daughter notes that she can get fixated and ruminate on certain things giving the example of worrying about finding a specific hospital blanket so that her bed was arranged and made properly this morning. She also reports experiencing grief and sadness particularly missing her late friend and male partner Luis who about 4 years ago. Previously her when he was in his 50s. She has had additional life changes including that many of her friends, whom she previously enjoyed golfing with, no longer have the stamina or ability to do this. At times she recalls making statements of not wanting to be alive or saying that maybe she should just when feeling frustrated by her son's insistence that she eat more food when she feels unable to do so. However she denies any current SI and states that these previous remarks were made purely out of moments of frustration. She denies any hopelessness and rather speaks to her wish of going on a tropical vacation with her family if her nausea were to get better. She loves to travel and wishes she could get back to doing this or to some of her activities like weekly dinners with her best friend. Her daughter recalls that prior to the onset of her stomach issues in November that Roseann had been with her family near [place] over the holidays and all of them had a wonderful time and that she ate very well. Sleep disturbances have been a concern for Roseann. She reports difficulty falling asleep and has tried various sleep aids including Tylenol PM and more recently melatonin which did seem to be very helpful for the 3 time she took it. She took 10 mg doses at bedtime. She got a smaller dose of melatonin in the hospital last night and reports that this was not beneficial for sleep and that she was up all night. She uses Ativan 0.25 mg as needed and finds this helps with anxiety but does not provide any relief for her nausea or improve her eating. Chart review notable for history of mirtazapine use seemingly as recently as April however neither Katelyn nor her daughter recalled this medication. She also previously tried Lexapro 5 mg but only a few doses and then this was discontinued as she could not tolerate it. Roseann reports feeling frustrated at times due to the persistent nature of her symptoms stating "nothing has changed" since November she expresses frustration that despite numerous tests and imaging studies a clear cause for symptoms has not been identified. Her daughter notes that they do not feel she currently has H. pylori nor cancer based on workups and evaluations. No significant history of psychiatric conditions prior to increased anxiety in recent years and depression following worsening nausea. Allergies Allergy/AdvReac Type Severity Reaction Status Date / Time levofloxacin [From Levaquin] Allergy Unknown pt can't Verified 06/07/25 11:34 remember reaction Home Medications Medication Instructions Recorded Confirmed Type aspirin 81 mg tablet,delayed 81 mg PO DAILY 01/22/25 06/14/25 History release (Adult Low Dose Aspirin) escitalopram oxalate 5 mg tablet 5 mg PO DAILY #30 tabs 05/28/25 06/14/25 Rx (Lexapro) lorazepam 0.5 mg tablet 0.25 mg (1/2 x 0.5 mg) PO DAILY 05/28/25 06/14/25 Rx PRN anxiety #14 tabs bismuth subsalicylate 525 mg/15 mL 525 mg (15 mL) PO QID 14 days #840 06/07/25 06/14/25 Rx oral suspension mL metronidazole 500 mg tablet 500 mg PO TID #42 tabs 06/07/25 06/14/25 Rx pantoprazole 40 mg tablet,delayed 40 mg PO BID #60 tabs 06/07/25 06/14/25 Rx release tetracycline 500 mg tablet 500 mg PO Q6H #56 tabs 06/07/25 06/14/25 Rx Patient History Medical History History of COVID-19 approx 04/2024 Memory problem discussed with Dr. Rios No neurology. History of fall (02/2024) pt reports every since fall her body hasn't been right. only known injury : something with rotator cuff, right. No hx sx intervention. Gastrointestinal complaints nasuea, loss of appetitie, wt loss within past yr. Reason for upcoming procedures. GERD (gastroesophageal reflux disease) not that pt knows of Abnormal blood cell count pt reports told "blood count was low" - unsure details. bloodwork was within last month. Dr. Rios Hyperlipidemia History of diverticulosis pt is not sure Sarcoidosis pt not sure Surgical History History of bronchoscopy History of colonoscopy (~2008) History of tubal ligation Family History Unknown ASCVD (arteriosclerotic cardiovascular disease) Father , at 82 years of age from natural causes. No problems noted. Mother , at 92 years of age from natural causes. No problems noted. Denies family history of Ovarian cancer Prostate cancer Clotting disorder Myocardial infarction Breast cancer Colorectal cancer Social History Smoking Status: Never smoker Tobacco Type: Cigarettes Age Started Using Tobacco: 24; Age Quit Using Tobacco: 62; packs per day: 0.1; Second Hand Exposure: No; Do You Dip or Chew Tobacco: No; Hx Alcohol Use: Yes Alcohol type: wine Alcohol Intake Frequency: 2-4 x/Month Hx Substance Use: No Preferred Language: Danish Communication Ability: Effective Visual Impairment: No Limitations Hearing Ability: Use of Hearing Aid Muffle Worker Required: No Beliefs That Will Affect Care: None marital status: / Current Living Situation: Alone current occupational status: retired Other Information That Helps Us Care for You: No Feels Safe at Home: Yes Safety Concerns: Feels Safe At This Time Childhood Exposure to Second-Hand Smoke: No Diet: regular caffeine: Yes Dental Care, Regularly: No Physical Activity Frequency: 3-4 Times per Week Physical Activity Frequency Comment: timmy and swimming at [facility] Seatbelt Use: always Assistive Devices: None Physical Exam Psychiatric: Orientation: alert, oriented to person, oriented to place, oriented to time and cooperative Apperance: appropriately dressed and appropriately groomed Eye Contact: good eye contact Motor Behavior: no abnormal motor movements Speech: normal rate/rhythm/volume of speech Affect: + constricted affect Mood: + depressed mood and + anxious mood Thought Process: goal directed thought process Thought Content: reality based without delusions Suicidal Thoughts: denies suicidal thoughts Homicidal Thoughts: denies homicidal thoughts Hallucinations: no auditory hallucinations and no visual hallucinations Cognition: recent memory grossly intact, remote memory grossly intact and attention grossly intact; + language not intact (some word finding difficulty ) Insight: + fair insight Judgment: + fair judgement Vital Signs (Past 24 Hours): Last Vital Signs Temp 36.4 C L 06/15/25 07:11 Pulse 100 H 06/15/25 07:11 Resp 18 06/15/25 07:11 BP 167/89 H 06/15/25 07:11 Pulse Ox 95 06/15/25 07:11 O2 Del Method Room Air 06/15/25 07:11 Results & Data (PSY) Medications Administered Aspirin (Aspirin 81 Mg Ectab) 81 mg PO DAILY NIKHIL Stop: 07/15/25 08:59 Last Admin: 06/15/25 08:49 Dose: 81 mg Documented By: ALE Famotidine (Famotidine 40 Mg Tablet) 40 mg PO DAILY NIKHIL Stop: 07/15/25 08:59 Last Admin: 06/15/25 08:49 Dose: 40 mg Documented By: ALE Ceftriaxone Sodium (Rocephin) 2,000 mg in 50 mls @ 100 mls/hr IV Q24H NIKHIL Stop: 06/16/25 19:29 Last Infusion: 06/14/25 21:15 Dose: Infused Documented By: Admin: 06/14/25 20:40 Dose: 100 mls/hr Documented By: BERRY Melatonin (Melatonin 3 Mg Tab) 3 mg PO HS PRN PRN Reason: Sleep Stop: 07/14/25 20:15 Last Admin: 06/14/25 20:39 Dose: 3 mg Documented By: BERRY Ondansetron HCl (Ondansetron Inj 2 Mg/Ml 2 Ml Vial) 4 mg IV Q4H PRN PRN Reason: Nausea And Vomiting Stop: 07/14/25 16:31 Last Admin: 06/15/25 03:03 Dose: 4 mg Documented By: Admin: 06/14/25 17:21 Dose: 4 mg Documented By: MANJULA Coding Level of Care Code 19904 IN/OBS CONSULT LVL 5,80M Diagnoses Nausea R11.0 JOSE (generalized anxiety disorder) F41.1 Adjustment disorder with depressed mood F43.21 Generalized weakness R53.1 Unintentional weight loss R63.4 Insomnia G47.00 Memory loss R41.3
--- NOTE | 2025-06-15 18:09 | Hospitalist Progress Note ---
Date of Service June 15, 2025 Assessment & Plan (1) JOSE (generalized anxiety disorder): Plan: To address #1, patient underwent formal Psychiatry Service evaluation with Dr. Georgia Galicia on 06/15/2025, 2:52pm, and who surmises that patient suffers from: (1) Nausea: (2) JOSE (generalized anxiety disorder): (3) Adjustment disorder with depressed mood: (4) Generalized weakness: (5) Unintentional weight loss: (6) Insomnia: (7) Memory loss: Subsequently, Dr. Galicia recommends: -ativan 0.25mg BID prn for anxiety but attempt to limit given risks of worsening cognitive impairment/falls -can continue prior to admission melatonin 10mg HS po -consider trial of olanzapine 1.25mg po HS and titrate to 2.5mg po HS if tolerated to help with sleep/appetite/anxiety * if not tolerated or ineffective (i.e. excess sedation, orthostasis or no improvement of appetite or sleep) then would start mirtazapine 7.5mg HS and increase to 15mg HS if tolerated (she was on this before with limited benefit thus keeping it a second line choice) * Other option would be trial of dronabinol for appetite -has upcoming appointment for outpatient psychiatry. Subsequently, I have opted to start patient on ativan 0.25mg PO bid prn anxiety and to resume patient's home-scheduled melatonin 10mg PO qhs (06/15/2025, 9:00pm). (2) Sterile pyuria: Plan: To address #2, patient was started on ceftriaxone 2g IV daily (day #1/3 on 06/14/2025, 7:00pm) in [facility] Med-Surg bed #N376-1. I will check vitals, genito-urinary exam, WBC w/diff, lactic acid #2 (06/14/2025, 10:24pm), lactic acid #3 (06/15/2025, 6:00am), procalcitonin #1 (06/14/2025, 6:24pm), procalcitonin #2 (06/15/2025, 6:00am), and urine culture (06/14/2025, 6:23pm) in the 06/16/2025 am. (3) Generalized weakness: Plan: To address #3, patient awaits PT/OT/Case Management Service evaluation in the 06/16/2025 am, in order to determine if patient is safe for D/C back to her home alone, where she currently ambulates without assistance from cane, walker, or wheelchair, and who has only fallen down once (e.g., 04/19/2024, on which date, patient reports: "I fell down in my living room vacuuming a rug and I tripped and I fell into a corner wall and broke my right clavicle (as affirmed on 03/29 MRI right shoulder which demonstrated "Subacute appearing displaced, and foreshortened complete fracture involving the mid diaphyseal clavicle with proximal fracture fragment displaced superiorly 11 mm"), and I was on pain meds for a year.") or if patient should move into her son's home (Mr. Miah Adams, ), as recommended by her son (Mr. Miah Adams, ). Patient reports that she wishes to remain living independently in her own home. Admission and Anticipated Discharge Date Admission Date: June 14, 2025 Subjective "I am ok. No problems today." Review of Systems Constitutional: Negative for antecedent/coincident fevers, chills, diaphoresis, cough, wheeze, sore throat, hemoptysis, chest pains, palpitations, pleurisy, nausea, vomiting, diarrhea, abdominal pain, pelvic pain, hematemesis, hematochezia, melena, hematuria, dysuria, frequency, urgency, headaches, dizziness, lightheadedness, visual changes, hearing changes, weakness, falls, syncope, trauma, travel history, sick contacts, or food/drug ingestions novel or new. All other review of systems are reported as negative by the patient on 06/16/2025. Physical Exam Constitutional: General: Comfortable, cooperative, coherent. Wide awake and alert. Not confused, lethargic, or obtunded. Patient speaks in complete, fluent, and articulate sentences without pause, interruption, cough, or wheeze. HEENT: Normocephalic, atraumatic. Pupils equally round and reactive to light. No nystagmus, gaze paresis, anisocoria, miosis, mydriasis, hyphema, scleral injection, conjunctivitis, or pterygium. No otorrhea. No pharyngeal erythema, edema, or discharge. Neck: Supple, no stridor, bruit, goiter, or hepato-jugular reflux. Jugular venous pressure is estimated to be 3 cm above the sternal angle of Surinder, which in turn, is 5 cm above the level of the right atrium; with jugular venous pressure estimated to be 8 cm, then, there is no jugular venous distention on 06/15/2025. Lymphatics: No cervical (anterior/posterior), supraclavicular, infraclavicular, axillary, epitrochlear, or inguinal adenopathy. Chest: Symmetric rise and fall with respirations. Non-tender to palpation. Lungs: Clear to auscultation and percussion. No audible expiratory wheeze, egophony, pectoriloquy, increase in tactile fremitus, or flatness/dullness to percussion at the bases. Heart: RRR. S1 and S2 noted. No S3 or S4 summation gallop. No tripartite friction rub. Grade II/ early systolic murmur @ LLSB without radiation to the carotids, axilla, or back, and which remains invariant in regards to the respiratory cycle. Abdomen: Soft, non-tender, non-distended. No rebound, guarding, Pham's sign, or organomegaly. Bowel sounds auscultated in all 4 quadrants. Extremities: No clubbing, cyanosis, or edema in upper extremities or lower extremities bilaterally. 2+ pedal pulses bilaterally. Skin: No decubitus ulcer or enanthem. Genito-urinary: No urethral discharge. No abreu catheter. Neurology: Alert and oriented in regards to person, place, time, and situation. 5/5 motor strength in all 4 extremities, both proximally and distally. No pronator drift. No dysarthria. No facial droop. Psychiatry: No homicidal ideation. No suicidal ideation. No flat affect; smiles appropriately. Results & Data Results & Data Vital Signs (Past 12 Hours) Vital Signs Temp Pulse Resp BP Pulse Ox O2 Del Method 06/15/25 15:29 36.8 C 91 H 20 127/80 96 Room Air 06/15/25 08:30 Room Air 06/15/25 07:11 36.4 C L 100 H 18 167/89 H 95 Room Air Laboratory Results WBC 7.23, N77 L14 M8 B1, Hb 12.2, MCV 85.8, MCHC 33.6, platelet 244 (06/14/2025, 12:29pm). INR (06/14/2025, 12:29pm). Na 138, K 3.7, BUN 13, creatinine 0.98, glucose 135, Ca 9.4, Mg 1.8, AST 20, ALT 12, ALK PHOS 54, TBili 0.9 (06/14/2025, 12:29pm). Lipase 21 U/L (06/14/2025, 12:29pm). TSH 1.01 uIU/mL (06/14/2025, 12:29pm). U/A: clear yellow, LE 2+, nitrite-, WBC 6-10, RBC 0-2, epithelial cells 0-2, bacteria 0 (06/14/2025). urine culture (06/14/2025): Lactic acid #1 (06/14/2025, 6:24pm). Lactic acid #2 (06/14/2025, 10:24pm). Lactic acid #3 (06/15/2025, 6:00am). Procalcitonin #1 (06/14/2025, 6:24pm). Procalcitonin #2 (06/15/2025, 6:00am). Diagnostic Findings EKG (06/14/2025, 12:17pm): NSR @ 86, HI 120, QTC 440, no acute ST depressions/elevations (by my review). PG Care Time/CCT Total # of Minutes Spent Total Time Spent with Patient: Total time spent is greater than 50% in coordination of care (as documented) at patient's floor/unit and/or counseling patient: Coding Level of Care Code 58689 SUB INP/OBS CARE 2/35MIN Diagnoses JOSE (generalized anxiety disorder) F41.1 Sterile pyuria R82.81 Generalized weakness R53.1
[2025-06-15] MEDS: MELATONIN 3 MG TAB PO SCH (20:24)
[2025-06-16 06:16] LABS: Hematocrit (blood only) 35.1 % (37.0-47.0); Hemoglobin 11.6 g/dl (12.0-16.0); Immature Granulocytes # (auto) 0.02 K/uL (0.01-0.20); Immature Granulocytes % (auto) 0.4 %; Mean Corpuscular Hemoglobin 28.2 pg (25.0-34.0); Mean Corpuscular Volume 85.4 fL (80.0-100.0); Platelet Count 219 K/uL (130-400); RDW Standard Deviation 40.0 fL (36.4-46.3); Red Blood Count 4.11 M/uL (4.20-5.40); White Blood Count 5.54 K/ul (4.8-10.8)
--- NOTE | 2025-06-16 12:02 | Hospitalist Progress Note ---
Date of Service June 16, 2025 Assessment & Plan (1) JOSE (generalized anxiety disorder): Plan: To address #1, patient underwent formal Psychiatry Service evaluation with Dr. Georgia Galicia on 06/15/2025, 2:52pm, and who surmised that patient suffers from: (1) Nausea: (2) JOSE (generalized anxiety disorder): (3) Adjustment disorder with depressed mood: (4) Generalized weakness: (5) Unintentional weight loss: (6) Insomnia: (7) Memory loss: Subsequently, Dr. Galicia recommends: -ativan 0.25mg BID prn for anxiety but attempt to limit given risks of worsening cognitive impairment/falls -can continue prior to admission melatonin 10mg HS po -consider trial of olanzapine 1.25mg po HS and titrate to 2.5mg po HS if tolerated to help with sleep/appetite/anxiety * if not tolerated or ineffective (i.e. excess sedation, orthostasis or no improvement of appetite or sleep) then would start mirtazapine 7.5mg HS and increase to 15mg HS if tolerated (she was on this before with limited benefit thus keeping it a second line choice) * Other option would be trial of dronabinol for appetite -has upcoming appointment for outpatient psychiatry. Subsequently, I opted to start patient on ativan 0.25mg PO bid prn anxiety (06/15/2025, 6:07pm)(not administered as of 06/16/2025, 12:07pm) and I resumed patient's home-scheduled melatonin 9mg PO qhs (06/15/2025, 9:00pm). (2) Sterile pyuria: Plan: To address #2, patient was started on ceftriaxone 2g IV daily (day #1/3 on 06/14/2025, 7:00pm)(day #2/3 on 06/15/2025, 6:43pm) in [facility] Med-Surg bed #N376-1. I will check vitals, genito-urinary exam in the 06/17/2025 am. cf., U/A: clear yellow, LE 2+, nitrite-, WBC 6-10, RBC 0-2, epithelial cells 0- 2, bacteria 0 (06/14/2025). cf., urine culture (06/14/2025): 3 times of organisms, all low counts, probable skin bob. As it remains unclear if urine sample was drawn prior to administration of ceftriaxone 2g IV daily (day #1/3 on 06/14/2025, 7:00pm), I cannot exclude the possibility that ceftriaxone 2g IV daily (day #1/3 on 06/14/2025, 7:00pm) sterilized patient's urine sample prior to undergoing urinalysis (06/14/2025) and/or urine culture (06/14/2025), especially as there is no recorded time on 06/14/2025 when urinalysis (06/14/2025) and urine culture (06/14/2025) were actually drawn. Hence, I have opted to continue and complete ceftriaxone 2g IV daily (day #1/3 on 06/14/2025, 7:00pm)(day #2/3 on 06/15/2025, 6:43pm) on day #3/3 on 06/16/2025, 6-7pm. (3) Generalized weakness: Plan: To address #3, patient awaits PT/OT/Case Management Service evaluation in the 06/17/2025 am, in order to determine if patient is safe for D/C back to her home alone, where she currently ambulates without assistance from cane, walker, or wheelchair, and who has only fallen down once (e.g., 04/19/2024, on which date, patient reports: "I fell down in my living room vacuuming a rug and I tripped and I fell into a corner wall and broke my right clavicle (as affirmed on 04/19/2024 MRI right shoulder which demonstrated "Subacute appearing displaced, and foreshortened complete fracture involving the mid diaphyseal clavicle with proximal fracture fragment displaced superiorly 11 mm"), and I was on pain meds for a year.") or if patient should move into her son's home (Mr. Miah Adams, ), as recommended by her son (Mr. Miah Adams, ). Patient reports that she wishes to remain living independently in her own home. Admission and Anticipated Discharge Date Admission Date: June 14, 2025 Subjective "I feel good today. I want to watch the roney tournament on channel 6 today. Can you help me with the remote control? I can't seem to turn it on, or get to channel 6. The golf game (e.g., 153 Open Championship @ [facility], [facility]) is in [place], and I am from [place], you know." Review of Systems Constitutional: Negative for antecedent/coincident fevers, chills, diaphoresis, cough, wheeze, sore throat, hemoptysis, chest pains, palpitations, pleurisy, nausea, vomiting, diarrhea, abdominal pain, pelvic pain, hematemesis, hematochezia, melena, hematuria, dysuria, frequency, urgency, headaches, dizziness, lightheadedness, visual changes, hearing changes, weakness, falls, syncope, trauma, travel history, sick contacts, or food/drug ingestions novel or new. All other review of systems are reported as negative by the patient on 06/16/2025. Physical Exam Constitutional: General: Comfortable, cooperative, coherent. Wide awake and alert. Not confused, lethargic, or obtunded. Patient speaks in complete, fluent, and articulate sentences without pause, interruption, cough, or wheeze. HEENT: Normocephalic, atraumatic. Pupils equally round and reactive to light. No nystagmus, gaze paresis, anisocoria, miosis, mydriasis, hyphema, scleral injection, conjunctivitis, or pterygium. No otorrhea. No pharyngeal erythema, edema, or discharge. Neck: Supple, no stridor, bruit, goiter, or hepato-jugular reflux. Jugular venous pressure is estimated to be 3 cm above the sternal angle of Surinder, which in turn, is 5 cm above the level of the right atrium; with jugular venous pressure estimated to be 8 cm, then, there is no jugular venous distention on 06/16/2025. Lymphatics: No cervical (anterior/posterior), supraclavicular, infraclavicular, axillary, epitrochlear, or inguinal adenopathy. Chest: Symmetric rise and fall with respirations. Non-tender to palpation. Lungs: Clear to auscultation and percussion. No audible expiratory wheeze, egophony, pectoriloquy, increase in tactile fremitus, or flatness/dullness to percussion at the bases. Heart: RRR. S1 and S2 noted. No S3 or S4 summation gallop. No tripartite friction rub. Grade II/ early systolic murmur @ LLSB without radiation to the carotids, axilla, or back, and which remains invariant in regards to the respiratory cycle. Abdomen: Soft, non-tender, non-distended. No rebound, guarding, Pham's sign, or organomegaly. Bowel sounds auscultated in all 4 quadrants. Extremities: No clubbing, cyanosis, or edema in upper extremities or lower extremities bilaterally. 2+ pedal pulses bilaterally. Skin: No decubitus ulcer or enanthem. Genito-urinary: No urethral discharge. No abreu catheter. Neurology: Alert and oriented in regards to person, place, time, and situation. 5/5 motor strength in all 4 extremities, both proximally and distally. No pronator drift. No dysarthria. No facial droop. Psychiatry: No homicidal ideation. No suicidal ideation. No flat affect; smiles appropriately. Results & Data Results & Data Vital Signs (Past 12 Hours) Vital Signs Temp Pulse Resp BP Pulse Ox O2 Del Method 06/16/25 09:36 Room Air 06/16/25 07:32 36.8 C 89 16 131/74 98 Room Air Laboratory Results WBC 7.23, N77 L14 M 8 B1, Hb 12.2, MCV 85.8, MCHC 33.6, platelet 244 (06/14/2025, 12:29pm). WBC 5.01, N66 L22 M10 B1 E1, Hb 11.5, MCV 83.9, MCHC 34.5, platelet 221 (06/15/2025, 5:58am). WBC 5.54, N55 L29 M12 E2 B1, Hb 11.6, MCV 85.4, MCHC 33.0, platelet 219 (06/16/2025, 6:03am). INR (06/14/2025, 12:29pm)(ordered, never drawn/performed). Na 138, K 3.7, BUN 13, creatinine 0.98, glucose 135, Ca 9.4, Mg 1.8, AST 20, ALT 12, ALK PHOS 54, TBili 0.9 (06/14/2025, 12:29pm). Na 140, K 4.1, BUN 11, creatinine 0.95, glucose 105, Ca 9.2 (06/15/2025, 5:58am). Lipase 21 U/L (06/14/2025, 12:29pm). TSH 1.01 uIU/mL (06/14/2025, 12:29pm). U/A: clear yellow, LE 2+, nitrite-, WBC 6-10, RBC 0-2, epithelial cells 0-2, bacteria 0 (06/14/2025). urine culture (06/14/2025): 3 times of organisms, all low counts, probable skin bob. Lactic acid #1 2.1 mmol/L (06/14/2025, 6:35pm). Lactic acid #2 0.8 mmol/L (06/14/2025, 10:36pm). Lactic acid #3 1.0 mmol/L (06/15/2025, 5:58am). Lactic acid #4 1.0 mmol/L (06/16/2025, 6:03am). Procalcitonin #1 < 0.02 ng/mL (06/14/2025, 6:35pm). Procalcitonin #2 0.02 ng/mL (06/15/2025, 5:58am). Procalcitonin #3 0.04 ng/mL (06/16/2025, 6:04am). Diagnostic Findings EKG (06/14/2025, 12:17pm): NSR @ 86, NJ 120, QTC 440, no acute ST depressions/elevations (by my review). PG Care Time/CCT Total # of Minutes Spent Total Time Spent with Patient: Total time spent is greater than 50% in coordination of care (as documented) at patient's floor/unit and/or counseling patient: Coding Level of Care Code 85487 SUB INP/OBS CARE 2/35MIN Diagnoses JOSE (generalized anxiety disorder) F41.1 Sterile pyuria R82.81 Generalized weakness R53.1
[2025-06-16 20:26] VITALS: TEMP 97.7
[2025-06-17 07:02] VITALS: BP 124/76; PULSE 84; RESP 18; O2SAT 98
--- NOTE | 2025-06-17 08:54 | Discharge Summary ---
Discharge Summary Date of Service June 17, 2025 Principal Dx & Hospital Course #1 = Principal Diagnosis (1) JOSE (generalized anxiety disorder): To address #1, patient underwent formal Psychiatry Service evaluation with Dr. Georgia Galicia on 06/15/2025, 2:52pm, and who surmised that patient suffers from: (1) Nausea: (2) JOSE (generalized anxiety disorder): (3) Adjustment disorder with depressed mood: (4) Generalized weakness: (5) Unintentional weight loss: (6) Insomnia: (7) Memory loss: Subsequently, Dr. Galicia recommended: -ativan 0.25mg BID prn for anxiety but attempt to limit given risks of worsening cognitive impairment/falls -can continue prior to admission melatonin 10mg HS po -consider trial of olanzapine 1.25mg po HS and titrate to 2.5mg po HS if tolerated to help with sleep/appetite/anxiety * if not tolerated or ineffective (i.e. excess sedation, orthostasis or no improvement of appetite or sleep) then would start mirtazapine 7.5mg HS and increase to 15mg HS if tolerated (she was on this before with limited benefit thus keeping it a second line choice) * Other option would be trial of dronabinol for appetite -has upcoming appointment for outpatient psychiatry. Subsequently, I opted to start patient on ativan 0.25mg PO bid prn anxiety (06/15/2025, 6:07pm)(not administered as of 06/16/2025, 12:07pm) and I resumed patient's home-scheduled melatonin 9mg PO qhs (06/15/2025, 9:00pm). Subsequently, patient was discharged back to her home on 06/17/2025, this time with home PT/OT/VNA services. Patient will also resume her home-scheduled ativan 0.5mg PO daily prn anxiety and her home-scheduled melatonin 9mg PO qhs on hospital discharge back to her home on 06/17/2025, this time with home PT/OT/VNA services. To this end, patient's [id number], [address], [place] [address], received an electronic prescription for melatonin 9mg PO qhs, #90 tablets, each tablet 3mg, no refills on 06/17/2025, prior to hospital discharge back to her home on 06/17/2025, this time with home PT/OT/VNA services. (2) Sterile pyuria: To address #2, patient received ceftriaxone 2g IV daily (day #1/3 on 06/14/2025, 7:00pm)(day #2/3 on 06/15/2025, 6:43pm)(day #3/3 on 05/2025, 6:40pm) in [facility] Med-Surg bed #N376-1. cf., U/A: clear yellow, LE 2+, nitrite-, WBC 6-10, RBC 0-2, epithelial cells 0- 2, bacteria 0 (06/14/2025). cf., urine culture (06/14/2025): 3 times of organisms, all low counts, probable skin bob. As it remains unclear if urine sample was drawn prior to administration of ceftriaxone 2g IV daily (day #1/3 on 06/14/2025, 7:00pm), I cannot exclude the possibility that ceftriaxone 2g IV daily (day #1/3 on 06/14/2025, 7:00pm) sterilized patient's urine sample prior to undergoing urinalysis (06/14/2025) and/or urine culture (06/14/2025), especially as there is no recorded time on 06/14/2025 when urinalysis (06/14/2025) and urine culture (06/14/2025) were actually drawn. Hence, I opted to continue and complete ceftriaxone 2g IV daily (day #1/3 on 06/14/2025, 7:00pm)(day #2/3 on 06/15/2025, 6:43pm)(day #3/3 on 06/16/2025, 6:40pm). Patient reports no side effects/adverse effects at all after having received ceftriaxone 2g IV daily (day #1/3 on 06/14/2025, 7:00pm)(day #2/3 on , 6:43pm)(day #3/3 on 06/16/2025, 6:40pm). In fact, patient reports that she feels well and wants to go back to her home on discharge date 06/17/2025. Subsequently, patient was discharged back to her home on 06/17/2025, this time with home PT/OT/VNA services. (3) Generalized weakness: To address #3, patient underwent PT/OT/Case Management Service evaluation in the 06/17/2025 am, in order to determine if patient is safe for D/C back to her home alone, where she currently ambulates without assistance from cane, walker, or wheelchair, and who has only fallen down once (e.g., 04/19/2024, on which date, patient reports: "I fell down in my living room vacuuming a rug and I tripped and I fell into a corner wall and broke my right clavicle (as affirmed on 04/19 MRI right shoulder which demonstrated "Subacute appearing displaced, and foreshortened complete fracture involving the mid diaphyseal clavicle with proximal fracture fragment displaced superiorly 11 mm"), and I was on pain meds for a year.") or if patient should move into her son's home (Mr. Miah Adams, ), as recommended by her son (Mr. Miah Adams, ). Patient reports that she wishes to remain living independently in her own home. Subsequently, patient was discharged back to her home on 06/17/2025, this time with home PT/OT/VNA services. Admission HPI Per Admitting Provider 89 years old female with PMH of DNR/DNI @ home alone, underweight with BMI 17.87 (height 165.1 cm; weight 48.5 kg), former tobacco abuse with no subsequent diagnosis of COPD, not on home O2 or home steroids, H. pylori infection (January 2025), treated successfully with a combination of metronidazole, tetracycline, and protonix, as per patient's report, followed by H. pylori stool antigen test negative (04/10/2025, 9:00am), bilateral sensineural hearing loss with no binaural hearing aids in situ @ home, and group B beta hemolytic Streptococcus (as noted on 03/23/2023, 2:31pm urine culture), who reports: "I haven't eaten much for the past one year because of nausea. I've lost 30 pounds in the past one year because of the nausea, I don't feel like eating. I already got EGD, colonoscopy and CAT scans, and I don't hve colon cancer. I also don't vomit or have diarrhea, except yesterday (06/13/2025) when I had diarrhea twice, no blood, just watery diarrhea, and that was only because I started taking flagyl 500mg and tetracycline 100mg and protonix 40mg starting last night (06/13/2025, 5:00pm), then again in the middle of the night (06/14/2025, 12:00am), and again this morning (06/14/2025, 6:00am), as recommended by my family doctor, Dr. Marquis Cooney, thinking that I was having H. pylori infection, but these medicines did me no good. I took these same 3 medicines last (06/06/2025) as recommended by my GI doctor, Dr. Julio Scott, and his preschool assistant, Ms. Zakiya Winters PA-C, who wrote out the prescriptions for these 3 medicines, thinking that I had H. pylori infection last week, and so, I took these three medicines last week and they seemed to help me last week, but this week, the nausea came right back, and so now, I do not think I have H. pylori infection, and I am not taking these 3 medicines. I think that I have maybe something else, I don't really know. My son, Miah Adams ( ), says that I am very anxious, and I am thinking that maybe he is right. I lost my 32 years ago, then in March, I fell down in my living room vacuuming a rug and I tripped and I fell into a corner wall and broke my right clavicle (as affirmed on 04/19/2024 MRI right shoulder which demonstrated "Subacute appearing displaced, and foreshortened complete fracture involving the mid diaphyseal clavicle with proximal fracture fragment displaced superiorly 11 mm"), and I was on pain meds for a year. I got depressed and started missing my again, and then the nausea started up and I lost 30 pounds in the last year. My son, Miah Adams ( ) is convinced I am anxious. Maybe I could see a psychiatrist." Patient denies antecedent/coincident early satiety, dysphagia, odynophagia, night sweats, fevers, chills, cough, wheeze, sore throat, hemoptysis, chest pains, palpitations, pleurisy, vomiting, abdominal pain, pelvic pain, hematemesis, hematochezia, melena, hematuria, dysuria, frequency, urgency, headaches, dizziness, lightheadedness, visual changes, hearing changes, weakness, falls, syncope, trauma, travel history, sick contacts, or food/drug ingestions novel or new. All other review of systems are reported as negative by the patient on observation date 06/14/2025. In [facility] ER bed #C6, patient was afebrile @ 36.6 degrees Celsius, HR 87, RR 18, O2 sat 97% on room air, and BP 150/82 (06/14/2025, 12:08pm). Exam was noted for a soft, non-tender, non-distended abdomen without guarding, Pham's sign, or organomegaly. Bowel sounds were auscultated in all 4 quadrants. Labs in [facility] ER bed #C6 included: WBC 7.23, N77 L14 M8 B1, Hb 12.2, MCV 85.8, MCHC 33.6, platelet 244 (06/14/2025, 12:29pm). INR (06/14/2025, 12:29pm). Na 138, K 3.7, BUN 13, creatinine 0.98, glucose 135, Ca 9.4, Mg 1.8, AST 20, ALT 12, ALK PHOS 54, TBili 0.9 (06/14/2025, 12:29pm). Lipase 21 U/L (06/14/2025, 12:29pm). TSH 1.01 uIU/mL (06/14/2025, 12:29pm). U/A: clear yellow, LE 2+, nitrite-, WBC 6-10, RBC 0-2, epithelial cells 0-2, bacteria 0 (06/14/2025). urine culture (06/14/2025): Lactic acid #1 (06/14/2025, 6:24pm). Lactic acid #2 (06/14/2025, 10:24pm). Lactic acid #3 (06/15/2025, 6:00am). Procalcitonin #1 (06/14/2025, 6:24pm). Procalcitonin #2 (06/15/2025, 6:00am). Additional testing in [facility] ER bed #C6 included: EKG (06/14/2025, 12:17pm): NSR @ 86, CO 120, QTC 440, no acute ST depressions/elevations (by my review). Patient was subsequently placed in OBSERVATION on the hospitalist service @ [facility] on 06/14/2025 with the following diagnoses: 1. Anxiety disorder, undiagnosed and untreated. 2. Sterile pyuria (as defined by WBC >/= 10, bacteria 0), R/O acute UTI. 3. Generalized deconditioning. To address #1, patient awaits formal Psychiatry Service evaluation with Dr. Felisha Garza. To address #2, patient was started on ceftriaxone 2g IV daily (day #1/3 on 06/14/2025, 7:00pm) in [facility] Med-Surg bed #N376-1. I will check vitals, genito-urinary exam, WBC w/diff, lactic acid #2 (06/14/2025, 10:24pm), lactic acid #3 (06/15/2025, 6:00am), procalcitonin #1 (06/14/2025, 6:24pm), procalcitonin #2 (06/15/2025, 6:00am), and urine culture (06/14/2025, 6:23pm) in the 06/15/2025 am. To address #3, patient awaits PT/OT/Case Management Service evaluation to determine if patient is safe for D/C back to her home alone, where she currently ambulates without assistance from cane, walker, or wheelchair, and who has only fallen down once (e.g., 04/19/2024, on which date, patient reports: "I fell down in my living room vacuuming a rug and I tripped and I fell into a corner wall and broke my right clavicle (as affirmed on 04/19/2024 MRI right shoulder which demonstrated "Subacute appearing displaced, and foreshortened complete fracture involving the mid diaphyseal clavicle with proximal fracture fragment displaced superiorly 11 mm"), and I was on pain meds for a year.") or if patient should move into her son's home (Mr. Miah Adams, ), as recommended by her son (Mr. Miah Adams, ). Patient reports that she wishes to remain living independently in her own home. Discharge Exam Constitutional General: Comfortable, cooperative, coherent. Wide awake and alert. Not confused, lethargic, or obtunded. Patient speaks in complete, fluent, and articulate sentences without pause, interruption, cough, or wheeze. HEENT: Normocephalic, atraumatic. Pupils equally round and reactive to light. No nystagmus, gaze paresis, anisocoria, miosis, mydriasis, hyphema, scleral injection, conjunctivitis, or pterygium. No otorrhea. No pharyngeal erythema, edema, or discharge. Neck: Supple, no stridor, bruit, goiter, or hepato-jugular reflux. Jugular venous pressure is estimated to be 3 cm above the sternal angle of Surinder, which in turn, is 5 cm above the level of the right atrium; with jugular venous pressure estimated to be 8 cm, then, there is no jugular venous distention on 06/17/2025. Lymphatics: No cervical (anterior/posterior), supraclavicular, infraclavicular, axillary, epitrochlear, or inguinal adenopathy. Chest: Symmetric rise and fall with respirations. Non-tender to palpation. Lungs: Clear to auscultation and percussion. No audible expiratory wheeze, egophony, pectoriloquy, increase in tactile fremitus, or flatness/dullness to percussion at the bases. Heart: RRR. S1 and S2 noted. No S3 or S4 summation gallop. No tripartite friction rub. Grade II/ early systolic murmur @ LLSB without radiation to the carotids, axilla, or back, and which remains invariant in regards to the respiratory cycle. Abdomen: Soft, non-tender, non-distended. No rebound, guarding, Pham's sign, or organomegaly. Bowel sounds auscultated in all 4 quadrants. Extremities: No clubbing, cyanosis, or edema in upper extremities or lower extremities bilaterally. 2+ pedal pulses bilaterally. Skin: No decubitus ulcer or enanthem. Genito-urinary: No urethral discharge. No abreu catheter. Neurology: Alert and oriented in regards to person, place, time, and situation. 5/5 motor strength in all 4 extremities, both proximally and distally. No pronator drift. No dysarthria. No facial droop. Psychiatry: No homicidal ideation. No suicidal ideation. No flat affect; smiles appropriately. Discharge Plan Discharge Items Patient Disposition: Home - Home Health Services Reason For Visit: ANXIETY DISORDER, GENERALIZED WEAKNESS Discharge Diagnosis: 1. Anxiety disorder. 2. Generalized weakness. 3. Sterile pyuria. Condition on Discharge: Fair Activity: Resume your previous activity Lifting: Gradually increase as tolerated Bathing: No limitations Exercise/Sports: Gradually increase as tolerated Weightbearing: Full weightbearing Non-emergency contact: Primary Care Provider Call non-emergency contact if: you have any medication questions Follow-up/Referrals: Marquis Cooney MD [Primary Care Provider] - Diet: Heart Healthy Addtl Attending Provider Instructions: See your PCP Dr. Marquis Cooney within 5-7 days of hospital discharge for routine, follow up visit. Pending Studies at Discharge: No Stand-Alone Forms: My [facility] [employer], Smoking Cessation Medications and DC Order Prescriptions: New famotidine 40 mg Tablet 40 mg PO DAILY Qty: 30 0RF melatonin 3 mg Tablet 9 mg PO HS Qty: 90 0RF Continued escitalopram oxalate [Lexapro] 5 mg tablet 5 mg PO DAILY Qty: 30 2RF lorazepam 0.5 mg tablet 0.25 mg PO DAILY PRN (Reason: anxiety) Qty: 14 0RF aspirin [Adult Low Dose Aspirin] 81 mg tablet,delayed release (DR/EC) 81 mg PO DAILY pantoprazole 40 mg tablet,delayed release (DR/EC) 40 mg PO BID Qty: 60 1RF Discontinued bismuth subsalicylate 525 mg/15 mL suspension 525 mg PO QID 14 Days Qty: 840 0RF tetracycline 500 mg tablet 500 mg PO Q6H Qty: 56 0RF metronidazole 500 mg tablet 500 mg PO TID Qty: 42 0RF Discharge Orders: Discharge Order (Routine); Ordered 06/17/25 Ordered By: Sean Sotelo Admission Data Admit Date/Time: 06/17/25 08:43 Attending Provider: Sean Sotelo Admit Provider: Sean Sotelo Primary Care Provider: Marquis Cooney Other Providers: Sean Sotelo; Georgia Galicia; iMah Baca; Raegan Rosenberg; Eula Harp; James Smith; Felisha Garza; Carlos Enrique Zabala Hospital Stay Data Consultations 06/14/25 14:03 ED Decision to Admit Stat 06/14/25 21:33 Consult Psychiatry Routine Pending Results Patient Have Any Pending Studies at Discharge: No Discharge Instructions Given to Patient (Per Discharging Provider) See your PCP Dr. Marquis Cooney within 5-7 days of hospital discharge for routine, follow up visit. Total Time Total Time Spent Total Time Spent (In Minutes): 35 minutes. Of this time period, 19 minutes were spent in coordinating patient's discharge. Coding Level of Care Code 59824 INP/OBS DISCH >30 MIN Diagnoses JOSE (generalized anxiety disorder) F41.1 Sterile pyuria R82.81 Generalized weakness R53.1
== END 2025-06-17 10:36 | disposition home health service (06) | DRG 880 ==
LOC: EDINP 12:00 → ED 12:00 → 3N 17:34